=== PATIENT | female | born 1990 | race Caucasian/White ===

== ENCOUNTER 2018-05-31 08:14 | Inpatient (IN) | payer OTHER ==
[2018-05-21 15:04] VITALS: BMI 18.8
--- NOTE | 2018-05-23 15:43 | HP ---
Admitting History and Physical - Primary Care Physician PCP: Rufino Castillo - Admission Chief Complaint: Breast cancer gene positive BRCA 2 + History of Present Illness: 28 year old premenapausal female of Ashkenazi descent with BRCA 1 and BRCA 2 mutations and family H/O breast and ovarian cancer. Her last mammogram was03/2016 and showed dense changes and US showed four left breast masses which were biopsied showing fibroadenomas .mammogram 09/2017 was negative and US showed bilateral densities unchanged 03/2018. Breast MRI showed benign findings. Here for bilateral prophylactic mastectomies. History Source: Patient Limitations to Obtaining History: No Limitations - Past Medical History ...LMP: 04/30/18 - Smoking History Smoking history: Never smoked Have you smoked in the past 12 months: No - Alcohol/Substance Use Hx Alcohol Use: Yes (social) Home Medications - Allergies Allergies/Adverse Reactions: Allergies Allergy/AdvReac Type Severity Reaction Status Date / Time No Known Allergies Allergy Verified 05/21/18 15:10 - Home Medications Home Medications: Ambulatory Orders Norethindrone-E.estradiol-Iron [Lo Loestrin Fe 1-10 Tablet] 1 tab PO DAILY 05/21 Family Disease History - Family Disease History Family Disease History: CA: Grandparent (pat GM breast and ovarian ca 50's/60's/ /pat GF pancreatic ca 78//mat GM lung ca//mat GGM breast ca), Mother (BCA neg) Physical Examination Constitutional: Yes: Well Nourished Breast(s): Yes: Other ( Assymetrical breast right being larger than left full C cup right breast no palpable masses or adenopathy) Problem List - Problems (1) BRCA gene mutation positive Code(s): Z15.01 - GENETIC SUSCEPTIBILITY TO MALIGNANT NEOPLASM OF BREAST; Z15.09 - GENETIC SUSCEPTIBILITY TO OTHER MALIGNANT NEOPLASM Assessment/Plan Bilateral total mastectomies with reconstruction
[2018-05-31] MEDS ORDERED: LIDOCAINE HCL/PF 2% SDV 5ML VIAL ONE (08:18)
[2018-05-31] MEDS ORDERED: ONDANSETRON 4 MG/2 ML VIAL ONE ×3 (08:18→14:11)
[2018-05-31] MEDS ORDERED: ceFAZolin SODIUM 1 GM VIAL ONE ×3 (08:18→15:40)
[2018-05-31] MEDS ORDERED: PROPOFOL 20 ML ONE ×3 (08:18→13:43)
[2018-05-31] MEDS ORDERED: ROCURONIUM BROMIDE 50 MG/5 ML VIAL ONE ×3 (08:18→12:53)
[2018-05-31] MEDS ORDERED: DEXAMETHASONE SOD PHOSPHATE 4 MG/1 ML VIAL ONE (08:18)
[2018-05-31] MEDS ORDERED: MIDAZOLAM HCL 2 MG/2 ML SINGLE DOSE VIAL ONE (10:15)
[2018-05-31] MEDS ORDERED: BUPIVACAINE HCL/PF 2.5 MG/ML - 30 ML VIAL IJ ONE (10:16)
[2018-05-31] MEDS ORDERED: BUPIVACAINE LIPOSOME/PF (EXPAREL) 266 MG/20 ML VIAL ONE (10:16)
[2018-05-31] MEDS ORDERED: GENTAMICIN SO4 80 MG/2 ML VIAL ONE (10:50)
[2018-05-31] MEDS ORDERED: HYDROmorphone HCL/PF 1 MG/ML AMP ONE (11:13)
[2018-05-31] MEDS ORDERED: ONDANSETRON 4 MG/2 ML VIAL IVPUSH PRN ×2 (11:34→12:47)
[2018-05-31] MEDS ORDERED: ACETAMINOPHEN 325 MG TABLET (FP) PO SCH (11:45)
[2018-05-31] MEDS ORDERED: ZOLPIDEM TARTRATE 5 MG TABLET PO PRN (12:47)
[2018-05-31] MEDS ORDERED: NEOSTIGMINE METHYLSULFATE 0.5 MG/ML - 10 ML MDV ONE (13:14)
[2018-05-31] MEDS ORDERED: GLYCOPYRROLATE 0.2 MG/1 ML VIAL ONE (13:16)
[2018-05-31] MEDS ORDERED: KETOROLAC TROMETHAMINE 30 MG/1 ML VIAL ONE (13:17)
[2018-05-31] MEDS ORDERED: diazePAM 2 MG TABLET PO ONE (15:15)
[2018-05-31] MEDS ORDERED: ceFAZolin SODIUM 1 GM VIAL IVPB ONE (15:20)
[2018-05-31] MEDS ORDERED: diazePAM 2 MG TABLET ONE (15:23)
--- NOTE | 2018-05-31 15:41 | SURG ---
Surgery Volunteer Manager Note Volunteer Manager: Zoila Mckay PA-C Date of Service: 05/31/18 Diagnosis: Chest wall abnormality s/p bilateral Mastectomy Procedure: Bilateral breast reconstruction with implants and alloderm I was present for the entirety of the operative procedure. For further detail, please refer to operative report. Visit type - Case Type Case Type: Scheduled - Emergency Emergency Visit: No - New patient This patient is new to me today: Yes Date on this admission: 05/31/18
[2018-05-31] MEDS: diazePAM 2 MG TABLET PO SCH ×2 (16:28→20:43)
[2018-05-31] MEDS: CEFAZOLIN 1 GM/D5W 1 GRAM/50 ML BAG IVPB SCH ×2 (16:28→20:42)
[2018-05-31] MEDS: LACTATED RINGERS SOLUTION 1,000 ML IV SCH (16:29)
[2018-05-31] MEDS: DEXTROSE 5%-0.45% SALINE 1,000 ML IV SCH (16:29)
[2018-05-31] MEDS: oxyCODONE HCL 5 MG TABLET PO PRN ×2 (17:10→21:11)
--- NOTE | 2018-05-31 20:12 | OP ---
DATE OF OPERATION: 05/31/2018 PREOPERATIVE DIAGNOSIS: BRCA positive, genetic susceptibility for breast cancer. POSTOPERATIVE DIAGNOSIS: BRCA positive, genetic susceptibility for breast cancer. PROCEDURE: Bilateral total nipple-sparing mastectomy through an inframammary approach with bilateral direct implant reconstruction with AlloDerm. ANESTHESIA: General endotracheal. PRIMARY SURGEON: Bertha Castillo MD RETAIL SALES LEAD: LIYAH Peralta PRIMARY SURGEON FOR BILATERAL DIRECT IMPLANT RECONSTRUCTION: Bertha Shankar MD COMPLICATIONS: There are no complications. Briefly, the patient is a 28-year-old nulliparous, premenopausal white female of Ashkenazi Advent[place] descent with a family history with her paternal grandmother who had breast cancer at age 50 and later ovarian cancer in her 60s. She also has a paternal grandmother who had pancreatic cancer at age 78 and maternal great-grandmother who had breast cancer in her 50s. The patient tested BRCA1 and BRCA2 positive in 2013. She has had prior breast biopsies for fibroadenomas. She was seen in consultation regarding risk reduction mastectomy due to her genetic susceptibility for breast cancer. We spoke about nipple sparing technique for risk reduction, and she was well aware that there are theoretical risks of leaving some tissue underneath the nipple. She understood that we do retroareolar biopsies at the time of surgery. If these show cancer, we would remove the nipples. She understood the lack of any prophylactic sentinel lymph node biopsy. She understood her other options were close surveillance or tamoxifen for risks reduction. She was seen by Dr. Shankar, our plastic surgeon, who spoke to her about the reconstruction technique and she decided to go forward with surgery with bilateral nipple-sparing mastectomies and direct implant reconstructions. She was brought in for the procedure on May 31, 2018. In the holding area, site verification was made, and informed consent was obtained. She was marked preoperatively by the plastic surgeon. She was brought into the operating room and laid on the OR table in the supine position. Venodynes were placed on the lower extremities prior to induction. She had a g of Ancef prior to incision. Both breasts were sterilely prepped and draped in the usual fashion. At this point, the left mastectomy was first performed. Nine cm incisions were marked in the inframammary folds bilaterally and symmetrically. Incision was made in the left inframammary fold, and the skin edges were reverted, and the breast was retracted inferiorly using Sachin clamps. The skin flap was raised using the Peak radiofrequency device superiorly to the level of the clavicle, medially to the level of the sternum, laterally to the level of the latissimus and inferiorly to the level of the inflammatory fold. The breast was taken down off the pectoralis major muscle from inferior medial to superior lateral and completely removed intact. It was oriented with the long lateral, short superior suture and weighted to allow for appropriate cosmetic result. Hemostasis was achieved using electrocautery, and the wound was copiously irrigated with warm sterile saline. A retroareolar biopsy was taken underneath the left nipple-areolar complex and sent for frozen section and came back negative. So, the left nipple was spared. At this point, the right mastectomy was performed. Again, using the symmetrical inflammatory incision about 9-cm in length in the right inflammatory fold. Again, the skin edges were reverted after the incision, and the breast was retracted inferiorly using Ward clamps. The skin flap was raised superiorly to the level of the clavicle, medial to the level of the sternum, laterally to the level of the latissimus, and inferiorly below the level of the inframammary fold. The breast was taken down off the pectoralis major muscle from inferior medial to superior lateral, completely removed intact. It was oriented with a long lateral, short superior suture and weighed to allow for appropriate cosmetic result. Hemostasis was achieved, and retroareolar biopsy was taken underneath the right nipple areolar complex and sent for frozen section and came back negative. So, the right nipple was spared. Both breasts were weighed, and the right breast was definitely over 100 g larger than the left breast. Dr. Shankar then became the primary surgeon who performed bilateral direct implant reconstructions placed in the subpectoral pocket. AlloDerm was used, and sutured into the inferior lateral aspects of both pectoralis major muscles to allow for the direct implant reconstructions. Two Frederick drains were placed around each implant and brought through separate stab incisions on a lateral skin folds and secured in place using a 3-0 nylon suture. All wounds were closed by Plastic Surgery using interrupted 3-0 deep dermal PDS suture and a running 4-0 subcuticular PDS suture. Mastisol and Steri-Strips were applied over the wound with the compressive dressing placed over this. We did use the SPY skin perfusion device both after the mastectomy and after the implant reconstruction, and she had good skin perfusion with some slight decreased perfusion directly in the nipples, but the areolar complex was well perfused. The patient was extubated at the end of the case, and drains were placed on FRANCIS salt bulb suction. She was placed into a surgical bra and brought to the postanesthesia care unit in stable condition. She will be recovered and admitted postoperatively for postoperative wound and pain management. All sponge and needle counts were correct at the end of the case. Estimated blood loss was about 100 mL. She was hemodynamically stable throughout. BERTHA CASTILLO M.D. [id number]
[2018-06-01] MEDS: diazePAM 2 MG TABLET PO SCH ×4 (00:05→22:11)
[2018-06-01] MEDS: oxyCODONE HCL 5 MG TABLET PO PRN ×6 (01:14→22:11)
[2018-06-01] MEDS: CEFAZOLIN 1 GM/D5W 1 GRAM/50 ML BAG IVPB SCH ×4 (03:12→20:30)
[2018-06-01 08:29] LABS: HEMATOCRIT 32.3 % (32.4-45.2); HEMOGLOBIN 10.5 GM/dl (10.7-15.3); MCHC 32.5 g/dl (32.0-36.0); MEAN CELL VOLUME 89.3 fl (80-96); MEAN PLT VOLUME 9.1 fl (7.5-11.1); PLATELET COUNT 342 K/MM3 (134-434); RBC 3.62 M/mm3 (3.60-5.2); RDW 12.4 % (11.6-15.6); WHITE BLOOD COUNT 11.8 K/mm3 (4.0-10.8)
[2018-06-01] MEDS: ACETAMINOPHEN 325 MG TABLET (FP) PO PRN ×2 (09:20→23:57)
--- NOTE | 2018-06-01 11:56 | PN ---
Progress Note, Physician Chief Complaint: S/P bilateral mastectomy with implant reconstruction POD#1 History of Present Illness: Patient was seen today at the bedside and states that she is still having issues with pain. Patient is tolerating po well. Otherwise she has no other complaints. - Current Medication List Current Medications: Active Medications Acetaminophen (Tylenol -) 650 mg PO Q6H PABLO Last Admin: 05/31/18 16:29 Dose: Not Given Acetaminophen (Tylenol -) 650 mg PO Q4H PRN PRN Reason: FEVER Last Admin: 06/01/18 09:20 Dose: 650 mg Diazepam (Valium -) 2 mg PO Q8H PABLO Last Admin: 06/01/18 05:35 Dose: 2 mg Fentanyl (Sublimaze Injection -) 25 mcg IVPUSH [id number] PRN PRN Reason: PAIN-PACU ORDER X 4 DOSES ONLY Lactated Ringer's (Lactated Ringers Solution) 1,000 mls @ 75 mls/hr IV ASDIR [facility] Last Admin: 05/31/18 16:29 Dose: Not Given Cefazolin Sodium (Ancef 1 Gm Premixed Ivpb -) 1 gram in 50 mls @ 100 mls/hr IVPB Q6H PABLO Last Admin: 06/01/18 09:19 Dose: 100 mls/hr Dextrose/Sodium Chloride (D5-1/2ns -) 1,000 mls @ 100 mls/hr IV ASDIR [facility] Last Admin: 05/31/18 16:29 Dose: Not Given Ondansetron HCl (Zofran Injection) 4 mg IVPUSH Q6H PRN PRN Reason: NAUSEA AND/OR VOMITING Oxycodone HCl (Roxicodone -) 5 mg PO Q4H PRN PRN Reason: PAIN LEVEL 1-5 Oxycodone HCl (Roxicodone -) 10 mg PO Q4H PRN PRN Reason: PAIN LEVEL 6-10 Last Admin: 06/01/18 09:19 Dose: 10 mg Zolpidem Tartrate (Ambien -) 5 mg PO HS PRN PRN Reason: Insomnia - Objective Vital Signs: Vital Signs Temperature 99.3 F 06/01/18 05:00 Pulse Rate 86 06/01/18 05:00 Respiratory Rate 18 06/01/18 05:00 Blood Pressure 96/51 L 06/01/18 05:00 O2 Sat by Pulse Oximetry (%) 99 06/01/18 06:34 Constitutional: Yes: Well Nourished, Calm Breast(s): Yes: Other (Bilateral breasts with nipple areola exposed through dressing. The left nipple with epidermalysis noted. The right nipple areola complex is pink. Mild ecchymosis noted left more than right. JPs with serosanginous discharge noted.) Labs: CBC, BMP 06/01/18 07:13 Problem List - Problems (1) BRCA gene mutation positive Code(s): Z15.01 - GENETIC SUSCEPTIBILITY TO MALIGNANT NEOPLASM OF BREAST; Z15.09 - GENETIC SUSCEPTIBILITY TO OTHER MALIGNANT NEOPLASM Assessment/Plan Plan: Pain management as per anesthesia Continue axbx OOB with assistance FRANCIS teaching and monitoring Plan for discharge in am
[2018-06-01] MEDS: traMADol HCL 50 MG TABLET PO SCH ×2 (14:48→20:29)
--- NOTE | 2018-06-01 15:02 | PN ---
Progress Note (short form) - Note Progress Note: 28F POD1 s/p b/l prophylactic mastectomy with reconstruction. Pt states that she has some stretching and pressure discomfort that is more than she can comfortably tolerate. Pt denies any nesthetic complications. AVSS. Will add standing tramadol. This was initially not ordered as per patient's request not to take standing narcotic. Will continue to follow.
[2018-06-02] MEDS: traMADol HCL 50 MG TABLET PO SCH ×2 (02:07→08:13)
[2018-06-02] MEDS: CEFAZOLIN 1 GM/D5W 1 GRAM/50 ML BAG IVPB SCH ×2 (02:07→08:15)
[2018-06-02] MEDS: oxyCODONE HCL 5 MG TABLET PO PRN ×2 (03:18→10:09)
[2018-06-02] MEDS: diazePAM 2 MG TABLET PO SCH (06:50)
[2018-06-02] MEDS: LACTATED RINGERS SOLUTION 1,000 ML IV SCH ×2 (08:04→12:27)
[2018-06-02] MEDS: DEXTROSE 5%-0.45% SALINE 1,000 ML IV SCH (08:05)
[2018-06-02] MEDS: ACETAMINOPHEN 325 MG TABLET (FP) PO PRN (08:14)
[2018-06-02] MEDS ORDERED: ACETAMINOPHEN 325 MG TABLET (FP) PO SCH (08:45)
[2018-06-02 09:05] VITALS: BP 116/73; PULSE 102; TEMP 97.7
--- NOTE | 2018-06-02 10:57 | PN ---
Progress Note, Physician Chief Complaint: Genetic susceptibility for breast cancer BRCA1 and BRCA2 positive History of Present Illness: The patient has a strong family history of breast cancer and was found to be BRCA1 and BRCA2 positive. She has had benign breast biopsies in the past. She comes in now postop from bilateral nipple sparing mastectomies with bilateral direct to implant reconstructions with alloderm. - Current Medication List Current Medications: Active Medications Acetaminophen (Tylenol -) 650 mg PO Q6H PABLO Last Admin: 05/31/18 16:29 Dose: Not Given Acetaminophen (Tylenol -) 650 mg PO Q4H PRN PRN Reason: FEVER Last Admin: 06/02/18 08:14 Dose: 650 mg Acetaminophen (Tylenol -) 650 mg PO Q6H PABLO Diazepam (Valium -) 2 mg PO Q8H [facility] Last Admin: 06/02/18 06:50 Dose: 2 mg Fentanyl (Sublimaze Injection -) 25 mcg IVPUSH [id number] PRN PRN Reason: PAIN-PACU ORDER X 4 DOSES ONLY Lactated Ringer's (Lactated Ringers Solution) 1,000 mls @ 75 mls/hr IV ASDIR [facility] Last Admin: 06/02/18 08:04 Dose: Not Given Cefazolin Sodium (Ancef 1 Gm Premixed Ivpb -) 1 gram in 50 mls @ 100 mls/hr IVPB Q6H [facility] Last Admin: 06/02/18 08:15 Dose: 100 mls/hr Dextrose/Sodium Chloride (D5-1/2ns -) 1,000 mls @ 100 mls/hr IV ASDIR [facility] Last Admin: 06/02/18 08:05 Dose: Not Given Ondansetron HCl (Zofran Injection) 4 mg IVPUSH Q6H PRN PRN Reason: NAUSEA AND/OR VOMITING Oxycodone HCl (Roxicodone -) 5 mg PO Q4H PRN PRN Reason: PAIN LEVEL 1-5 Last Admin: 06/02/18 10:09 Dose: 5 mg Oxycodone HCl (Roxicodone -) 10 mg PO Q4H PRN PRN Reason: PAIN LEVEL 6-10 Last Admin: 06/02/18 03:18 Dose: 10 mg Tramadol HCl (Ultram -) 50 mg PO Q6H [facility] Last Admin: 06/02/18 08:13 Dose: 50 mg Zolpidem Tartrate (Ambien -) 5 mg PO HS PRN PRN Reason: Insomnia - Objective Vital Signs: Vital Signs Temperature 97.7 F 06/02/18 09:03 Pulse Rate 102 H 06/02/18 09:03 Respiratory Rate 17 06/02/18 09:03 Blood Pressure 116/73 06/02/18 09:03 O2 Sat by Pulse Oximetry (%) 96 06/02/18 09:03 Constitutional: Yes: Well Nourished, No Distress, Anxious Eyes: Yes: WNL HENT: Yes: Atraumatic Neck: Yes: WNL Cardiovascular: Yes: Regular Rate and Rhythm Respiratory: Yes: Regular, CTA Bilaterally Gastrointestinal: Yes: Normal Bowel Sounds, Soft ...Rectal Exam: Yes: Deferred Genitourinary: Yes: WNL Breast(s): Yes: Other (Matectomy wounds clean, dry, and intact. Some superficial epidermolysis noted on the left nipple. Drains functioning well.) Musculoskeletal: Yes: WNL Extremities: Yes: WNL Wound/Incision: Yes: Clean/Dry, Well Approximated Neurological: Yes: Alert, Oriented ...Motor Strength: WNL Psychiatric: Yes: WNL Labs: CBC, BMP 06/01/18 07:13 Problem List - Problems (1) BRCA gene mutation positive Assessment/Plan: The patient is doing well POD#2 s/p bilateral nipple sparing mastectomies and direct to implant reconstructions. Her wounds are clean dry, and intact. She is a bit anxious but with good pain control. Drains functioning well. Skin flaps warm and viable but mild epidermolysis of the left nipple. Good pain control. Stable for discharge today. Home on percocet for pain. Follow up with Dr. Goldberg in 1 week. Code(s): Z15.01 - GENETIC SUSCEPTIBILITY TO MALIGNANT NEOPLASM OF BREAST; Z15.09 - GENETIC SUSCEPTIBILITY TO OTHER MALIGNANT NEOPLASM
--- NOTE | 2018-06-02 11:03 | DS ---
Physical Examination Vital Signs: Vital Signs Temperature 97.7 F 06/02/18 09:03 Pulse Rate 102 H 06/02/18 09:03 Respiratory Rate 17 06/02/18 09:03 Blood Pressure 116/73 06/02/18 09:03 O2 Sat by Pulse Oximetry (%) 96 06/02/18 09:03 Constitutional: Yes: Well Nourished, No Distress, Anxious Eyes: Yes: WNL HENT: Yes: Atraumatic, Normocephalic Neck: Yes: WNL Cardiovascular: Yes: Regular Rate and Rhythm Respiratory: Yes: Regular, CTA Bilaterally Gastrointestinal: Yes: Normal Bowel Sounds, Soft ...Rectal Exam: Yes: Deferred Renal/: Yes: WNL Breast(s): Yes: Other (mastectomy woundws clean, dry, and intact. Drains functioning well. Mild epidermolysis noted on left nipple but stable. Skin flaps warm and viable.) Musculoskeletal: Yes: WNL Extremities: Yes: WNL Wound/Incision: Yes: Clean/Dry, Well Approximated Neurological: Yes: Alert, Oriented ...Motor Strength: WNL Psychiatric: Yes: Alert, Oriented Labs: CBC, BMP 06/01/18 07:13 Discharge Summary Reason For Visit: GENETIC SUSCEPTIBILITY Genetic susceptibility for breast cancer BRCA1 and BRCA2 positive Procedures: Principal: Bilateral Nipple Sparing Mastectomies with bilateral direct to implant reconstructions with alloderm Hospital Course: The patient was admitted postop for pain management and wound management. She did well and had good pain control and her wounds were clean, dry, and intact for discharge by POD#2. Her skin flaps were viable and she had stable mid left nipple epidermolysis. She was instructed to follow up with Drs. Shankar and Jonathan in 1 week. Home on percocet for pain. Condition: Good - Instructions Diet, Activity, Other Instructions: Diet: Resume regular diet. Encourage low salt diet to help with swelling. Encourage fluid intake. Activity: Please take it easy for the first few days. Can shower 48 hours after surgery. Please be careful moving your arms too much and using your pectoralis muscles ( chest) for the first few days as well. Wound care: Please keep all dressings on as is. Can remove the gauze in bra before showering , but leave all the tapes/steri-strips on. Please wear surgical bra at all times, except when showering. Swelling in the abdomen, is to be expected. Feeling of deep soreness is also to be expected. Medication: Patient already received all prescriptions prior to surgery. Please take them as instructed. Appointment: Please call our office within one week to make an appointment to see Dr. Shankar Call [phone]. If you have any questions or concerns, please call/return to office sooner. No heavy lifting or exercise. Keep compressive bra on day/night. Record drain outputs daily. No bath/shower until drains removed. Referrals: Rufino Castillo MD [Staff Physician] - Abhilash Shankar MD [Staff Physician] - Disposition: HOME - Home Medications Comprehensive Discharge Medication List: Ambulatory Orders Norethindrone-E.estradiol-Iron [Lo Loestrin Fe 1-10 Tablet] 1 tab PO DAILY 05/21
--- NOTE | 2018-06-02 12:16 | OP ---
DATE OF OPERATION: 05/31/2018 PREOPERATIVE DIAGNOSIS: Bilateral acquired chest wall deformity status post bilateral mastectomy. POSTOPERATIVE DIAGNOSIS: Bilateral acquired chest wall deformity status post bilateral mastectomy. PROCEDURE: 1. Right immediate breast reconstruction utilizing immediate insertion of silicone breast implant and AlloDerm reconstruction. 2. Left immediate breast reconstruction utilizing immediate insertion of silicone breast implant and AlloDerm reconstruction. 3. Intravenous injection of indocyanine green dye and intraoperative diagnostic evaluation of non-coronary intraoperative fluorescein vascular angiography x 2. SURGEON: Dr. Mandi Shankar SCREEN PRINTING INSPECTOR: Zoila Mckay PA-C ANESTHESIA: GENERAL OPERATIVE PROCEDURE IN DETAIL: The patient was taken to the operating room. After induction of general anesthesia in the supine position, both arms were extended and padded. Venodyne boots were placed. The entire chest wall was painted with ChloraPrep solution over its entire extent and sterile drapes were placed in the usual fashion. The markings, which had been made in the standing position preoperatively, were reoutlined with the patient's knowledge. Time-out procedure was performed. Attention was turned by Dr. Castillo to the mastectomies. Bilateral inframammary incisions were made and Dr. Castillo performed mastectomies. This will be dictated under separate cover. Upon completion of the mastectomies, the wounds were copiously irrigated and attention was turned to the right breast. A subpectoral dissection was begun on the right breast, superiorly from the second rib, medially to the sternal fibers, and down to the inframammary fold, elevating the pectoralis major muscle from its insertion. At this point, a sheet of AlloDerm RTU tissue matrix contour medium perforated bilaterally was brought into the field and sutured superiorly along the pectoralis major muscle after rehydration. This was carried along the lateral mammary fold and down the side of the breast reconstruction. At this point, a Natrelle Inspira SoftTouch style SSF 520 mL implant was chosen. The left breast tissue removed was 338 gm, and the right breast approximately 468 gm. This implant was placed and then sutured with 3-0 Vicryl suture continued along the inframammary fold, completely covering the implant itself. The exact same procedure was carried out symmetrically on the opposite breast, also placing a Natrelle Inspira SoftTouch style SSF 520 mL implant in the same subpectoral pocket. Good symmetry was seen in the sitting position. After the implants were in place, the patient was injected with 10 mL of Isocyanide green dye and the Spy imaging system was brought into the field. Spy intraoperative angiogram showed good flow but some delayed flow into the left nipple complex, and the entire skin flaps were evaluated and seen to be viable with good blood flow. Two Frederick drains were brought out through separate stab wounds laterally. Both wounds were closed symmetrically using 3-0 PDS suture on the deep tissue, 3-0 in a deep dermal fashion, and 4-0 in a subcuticular fashion. Both wounds were dressed sterilely with Mastisol and Steri-Strips with a surgical bra and a compression strap. The patient tolerated the procedure well. She was awakened, extubated and transferred to the recovery room in satisfactory condition. The senior it assistant was present during the entire portion of the operation and closure. BERTHA SHANKAR M.D. [id number] MTDD
--- NOTE | 2018-06-04 18:55 | PATH ---
Surgical Pathology Report Patient Name: CONOR MONACO Med. Rec. #: [id number] /Age/Gender: 1990 (Age: 28) / F Account: [id number] Location: [facility] MED-[facility]URG Taken: 05/31/2018 Received: 05/31/2018 Reported: 06/04/2018 Physicians: Rufino Castillo M.D. Specimen(s) Received A: RETROAREOLAR BIOPSY RIGHT BREAST B: RETROAREOLAR BIOPDY LEFT BREAST C: RIGHT BREAST TISSUE, LONG LATERAL SHORT SUPERIOR D: LEFT BREAST TISSUE, LONG LATERAL SHORT SUPERIOR Clinical History BRCA+ prophylactic Intraoperative Consult Diagnosis A. Right breast retroareolar biopsy, frozen section: Negative for malignancy. B. Left retroareolar biopsy, frozen section: Negative for malignancy. Jose Reza M.D., 05/31/2018 Final Diagnosis A. RIGHT BREAST, RETROAREOLAR BIOPSY (FS): BENIGN BREAST TISSUE. B. LEFT BREAST, RETROAREOLAR BIOPSY (FS): BENIGN BREAST TISSUE WITH FOCAL USUAL DUCTAL HYPERPLASIA. C. RIGHT BREAST TISSUE, NIPPLE SPARING MASTECTOMY: BENIGN BREAST TISSUE SHOWING FIBROCYSTIC CHANGES WITH USUAL DUCTAL HYPERPLASIA, MICROCYSTS, APOCRINE METAPLASIA, AND STROMAL FIBROSIS. D. LEFT BREAST TISSUE, NIPPLE SPARING MASTECTOMY: BENIGN BREAST TISSUE SHOWING FIBROCYSTIC CHANGES WITH USUAL DUCTAL HYPERPLASIA, MICROCYSTS, APOCRINE METAPLASIA, AND STROMAL FIBROSIS. Electronically Signed Juanito Estrada M.D. Gross Description A. Received fresh labeled "retroareolar biopsy right breast," is a 1.8 x 0.8 x 0.3 cm portion of red-perez tissue. A frozen section is performed on the tissue. The frozen section residue is entirely submitted in one cassette. B. Received fresh labeled "retroareolar biopsy left breast," is a 2.3 x 2.0 x 0.3 cm portion of red-perez tissue. A frozen section is performed on the tissue. The frozen section residue is entirely submitted in one cassette. C. Received in formalin, labeled "right breast tissue," is a 488 gram, 14.5 x 14.0 x 4.0 cm. right mastectomy specimen with a short suture marking the superior aspect and a long suture marking the lateral aspect of the specimen, per the surgeon. There is no skin or nipple present. The deep margin is inked black and the anterior soft tissue margin is inked blue. The specimen is serially sectioned from lateral to medial. Sectioning reveals diffuse dense, white, focally firm fibrocystic tissue. [employer] sections are submitted in 12 cassettes as follows: 1-2-upper outer quadrant; 3-5-lower outer quadrant; 6-8-upper inner quadrant; 9-10-lower inner quadrant; 11-anterior soft tissue margin; 12-deep margin. D. Received in formalin, labeled "left breast tissue," is a 344 gram, 13.0 x 12.0 x 4.3 cm. left mastectomy specimen with a short suture marking the superior aspect and a long suture marking the lateral aspect of the specimen, per the surgeon. There is no skin or nipple present. The deep margin is inked black and the anterior soft tissue margin is inked blue. The specimen is serially sectioned from medial to lateral. Sectioning reveals diffuse dense, white, focally firm fibrocystic tissue. [employer] Carving [employer] Operator sections are submitted in 12 cassettes as follows: 1-3-upper outer quadrant; 4-5-lower outer quadrant; 6-8-upper inner quadrant; 9-10-lower inner quadrant; 11-anterior soft tissue margin; 12-deep margin. Time to formalin fixation: 15 minutes Total formalin fixation time: Approximately 30 hours. 06/01/2018 kash06/01/2018
== END 2018-06-02 12:30 | disposition home or self-care (01) | DRG 585 ==
LOC: FM/S 08:14 → EDBD 09:30 → FM/S 15:58
PROVIDERS: ADMIT Surgery Surgical Oncology; ATTEND Surgery Surgical Oncology
PROC: 4A1GXSH Monitoring of Skin and Breast Vascular Perfusion using Indocyanine Green Dye, External Approach (ICD-10-PCS; 2018-05-31)
PROC: 0HTV0ZZ Resection of Bilateral Breast, Open Approach (ICD-10-PCS; principal; 2018-05-31 11:22)
PROC: 0HRV0JZ Replacement of Bilateral Breast with Synthetic Substitute, Open Approach (ICD-10-PCS; 2018-05-31 11:22)
DX: Z40.01 Encounter for prophylactic removal of breast (principal); Z15.01 Genetic susceptibility to malignant neoplasm of breast; Z80.41 Family history of malignant neoplasm of ovary; N64.89 Other specified disorders of breast; Z80.3 Family history of malignant neoplasm of breast
CPT/HCPCS: 36415; 84703; 85027; 88305-TC; 88307-TC; 88331-TC; 94760